=== PATIENT | female | born 1960 | race Caucasian/White ===

== ENCOUNTER → 2018-05-30 | Outpatient (CLI) | payer BC ==
[2018-05-30 12:46] LABS: Basophils % (A) 1 %; Eosinophils # (A) 0.2 k/uL (0-0.7); Eosinophils % (A) 3 %; HCT 41.4 % (34.0-46.0); HGB 13.9 gm/dL (11.4-16.0); Lymphocytes # (A) 2.1 k/uL (1.0-4.8); Lymphocytes % (A) 33 %; MCH 29.1 pg (25.0-35.0); MCHC 33.6 g/dL (31.0-37.0); MCV 86.6 fL (80.0-100.0); Mean Platelet Volume 6.4; Monocytes # (A) 0.3 k/uL (0-1.0); Monocytes % (A) 5 %; Neutrophils # (A) 3.6 k/uL (1.3-7.7); Neutrophils % (A) 57 %; Platelet Count 208 k/uL (150-450); RBC 4.78 m/uL (3.80-5.40); RDW 13.1 % (11.5-15.5); WBC 6.2 k/uL (3.8-10.6)
[2018-05-30 12:53] LABS: Anion Gap 10 mmol/L; Blood Urea Nitrogen 23 mg/dL (7-17); Calcium 9.2 mg/dL (8.4-10.2); Carbon Dioxide 27 mmol/L (22-30); Chloride 103 mmol/L (98-107); Glucose 128 mg/dL (74-99); Potassium 4.4 mmol/L (3.5-5.1); Sodium 140 mmol/L (137-145)
== END | disposition home or self-care (01) ==
LOC: LABPAT 11:41
PROVIDERS: ATTEND Obstetrics & Gynecology
DX: Z01.812 Encounter for preprocedural laboratory examination (principal)
CPT/HCPCS: 36415; 80048; 85025; 93005

== ENCOUNTER 2018-06-05 05:42 | Inpatient (IN) | payer BC ==
[2018-05-29 11:12] VITALS: BMI 28.1
[~2018-06-05 05:42] MED LIST: DEXAMETHASONE SOD PHOSPHATE 10 MG/ML 1 ML VIAL IV ONE; MIDAZOLAM 2 MG/2 ML VIAL IV PRN; ONDANSETRON 4 MG/2 ML VIAL IVP ONE; SCOPOLAMINE 1.5MG/72HR PATCH TRANSDERM ONE; ceFAZolin IN SWFI 2 GM/20 ML SYRINGE IVP ONE; fentaNYL (PF) 50 MCG/ML 2 ML AMP IV PRN
[2018-06-05] MEDS: LACTATED RINGERS 1,000 ML IV SCH ×2 (06:36→18:16)
[2018-06-05 06:49] LABS: Glucose,Whole Blood 106 mg/dL (75-99)
[2018-06-05] MEDS ORDERED: LIDOCAINE 1% 20 ML VIAL (10MG/ML) FOR IV START INTRADERMA ONE (06:56)
--- NOTE | 2018-06-05 07:02 | P.HPOB ---
History of Present Illness H&P Date: 06/05/18 Chief Complaint: Cystocele 57 year old presents for anterior colporrhaphy. Review of Systems All systems: negative Constitutional: Denies chills, Denies fever Eyes: denies blurred vision, denies pain Ears, nose, mouth and throat: Denies headache, Denies sore throat Cardiovascular: Denies chest pain, Denies shortness of breath Respiratory: Denies cough Gastrointestinal: Denies abdominal pain, Denies diarrhea, Denies nausea, Denies vomiting Genitourinary: Denies dysuria, Denies hematuria Musculoskeletal: Denies myalgias Integumentary: Denies pruritus, Denies rash Neurological: Denies numbness, Denies weakness Psychiatric: Denies anxiety, Denies depression Endocrine: Denies fatigue, Denies weight change Past Medical History Past Medical History: Diabetes Mellitus, GERD/Reflux History of Any Multi-Drug Resistant Organisms: None Reported Past Surgical History: Cholecystectomy, Hysterectomy, Orthopedic Surgery Additional Past Surgical History / Comment(s): Rotator cuff repair; Past Anesthesia/Blood Transfusion Reactions: No Reported Reaction Smoking Status: Never smoker Past Alcohol Use History: None Reported Past Drug Use History: None Reported - Past Family History Mother Family Medical History: Cancer Additional Family Medical History / Comment(s): Breast CA Medications and Allergies Home Medications Medication Instructions Recorded Confirmed Type Ascorbic Acid [Vitamin C] 500 mg PO DAILY 05/29/18 05/29/18 History Esomeprazole Magnesium [NexIUM] 20 mg PO AC-BRKFST 05/29/18 06/05/18 History FLUoxetine HCL [PROzac] 20 mg PO HS 05/29/18 06/05/18 History metFORMIN HCL [Glucophage] 500 mg PO BID 05/29/18 06/05/18 History Allergies Allergy/AdvReac Type Severity Reaction Status Date / Time cephalexin [From Keflex] AdvReac Rash/Hives Verified 05/29/18 11:03 clindamycin [From Cleocin] AdvReac Nausea & Verified 05/29/18 11:03 Vomiting; Headaches Sulfa (Sulfonamide AdvReac Rash/Hives Verified 05/29/18 11:03 Antibiotics) sulfamethoxazole AdvReac Rash/Hives Verified 05/29/18 11:03 [From Bactrim] trimethoprim [From Bactrim] AdvReac Rash/Hives Verified 05/29/18 11:03 Exam Osteopathic Statement: *. No significant issues noted on an osteopathic structural exam other than those noted in the History and Physical/Consult. Vital Signs Temp Pulse Resp BP Pulse Ox 06/05/18 06:31 98.5 F 61 16 165/80 98 Heart: RRR Lungs: CTAB Abdomen: soft, nontender Extremeties: neg masoud's Results Abnormal Lab Results - Last 24 Hours (Table) 06/05/18 Range/Units 06:47 POC Glucose (mg/dL) 106 H (75-99) mg/dL Assessment and Plan (1) Cystocele Current Visit: Yes Status: Acute Code(s): [id number] - SNOMED Code(s): 786689559 Plan: 1. anterior colporrhaphy
[2018-06-05] MEDS ORDERED: fentaNYL (PF) 50 MCG/ML 2 ML AMP IVP ONE (07:11)
[2018-06-05] MEDS ORDERED: VASOPRESSIN 20 UNIT/ML 1 ML VIAL SQ ONE ×2 (07:26→07:47)
[2018-06-05] MEDS ORDERED: PROPOFOL 10 MG/ML 20 ML VIAL IV ONE (07:30)
[2018-06-05] MEDS ORDERED: MORPHINE SULFATE (PF) 0.3 MG/0.3 ML SYR ONE (07:30)
[2018-06-05] MEDS ORDERED: ePHEDrine SULFATE/0.9% NACL/PF 50 MG/5 ML SYRINGE IV ONE (07:30)
[2018-06-05] MEDS ORDERED: MIDAZOLAM 2 MG/2 ML VIAL ONE (07:30)
[2018-06-05] MEDS ORDERED: LIDOCAINE 1% INJ 10MG/ML (20 ML MDV) ONE (07:30)
[2018-06-05] MEDS ORDERED: fentaNYL (PF) 50 MCG/ML 2 ML AMP ONE (07:30)
[2018-06-05] MEDS ORDERED: SUCCINYLCHOLINE CHLORIDE 100 MG/5 ML SYR IV ONE (07:30)
[2018-06-05] MEDS ORDERED: CLINDAMYCIN 150 MG/ML 4 ML VIAL IVPB ONE (07:44)
[2018-06-05] MEDS ORDERED: BACITRACIN 500 UNIT/GM OINT 28.4 GM TUBE TOPICAL ONE (08:00)
--- NOTE | 2018-06-05 08:13 | P.OP ---
Date of Procedure: 06/05/18 Preoperative Diagnosis: 1. cystocele Postoperative Diagnosis: 1.same Procedure(s) Performed: anterior colporrhaphy Anesthesia: LD Surgeon: Paty Butler Housetrailer Servicer #1: Rodriguez Cedeño Estimated Blood Loss (ml): 5 IV fluids (ml): 600 Urine output (ml): 150 Pathology: other (vaginal mucosa) Condition: stable Disposition: PACU Operative Findings: large cystocele with some apical prolapse Description of Procedure: Patient was taken to the operating room where general anesthesia was obtained without difficulty. She is prepped and draped in normal sterile fashion in the dorsal lithotomy position, legs placed in candycane stirrups. Bladder was drained of all urine. The anterior vaginal mucosa was grasped with 2 Allis clamps. The anterior vaginal mucosa was infiltrated with diluted vasopressin. A horizontal incision was made with a scalpel and then a linear incision was made with the Metzenbaums and the vaginal mucosa was underscored with the Metzenbaums. The vaginal mucosa was peeled off the underlying fascia and a blunt manner. The underlying fascia was then pulled together with Hanh plication stitches of 0 Vicryl. The vaginal mucosa was trimmed and then repaired with 0 Vicryl in a running locked fashion. Vaginal packing and Ramirez catheter were placed. Patient tolerated procedure well sponge initial counts correct 2 and she was taken to recovery room in stable condition.
[2018-06-05] MEDS ORDERED: ONDANSETRON 4 MG/2 ML VIAL IVP PRN ×2 (08:15→09:25)
[2018-06-05] MEDS ORDERED: NALOXONE 0.4 MG/ML 1 ML VIAL IV PRN (08:15)
[2018-06-05] MEDS ORDERED: MORPHINE SULFATE 2 MG/ML SYRINGE IVP PRN (08:15)
[2018-06-05] MEDS: KETOROLAC 30 MG/ML 1 ML VIAL IVP PRN ×3 (08:38→20:06)
[2018-06-05] MEDS ORDERED: SIMETHICONE 80 MG CHEWABLE PO PRN (09:25)
[2018-06-05] MEDS ORDERED: HYDROcodone/APAP 5-325MG 1 EACH TAB PO PRN (09:25)
[2018-06-05] MEDS: SENNOSIDES-DOCUSATE SODIUM 1 EACH TAB PO SCH ×2 (12:26→20:15)
[2018-06-05] MEDS: metFORMIN 500 MG TAB PO SCH ×2 (12:27→20:08)
[2018-06-05] MEDS: diphenhydrAMINE 50 MG/ML 1 ML VIAL IVP PRN ×2 (14:28→20:07)
[2018-06-05] MEDS: FLUoxetine HCL 20 MG CAP PO SCH (20:08)
[2018-06-05] MEDS ORDERED: NALBUPHINE 10 MG/ML VIAL (10ML MDV) IM ONE (21:45)
[2018-06-06] MEDS: KETOROLAC 30 MG/ML 1 ML VIAL IVP PRN ×3 (01:58→21:18)
[2018-06-06] MEDS: PANTOPRAZOLE 40 MG TABLET PO SCH (06:17)
[2018-06-06 07:30] LABS: Basophils % (A) 0 %; Eosinophils # (A) 0.1 k/uL (0-0.7); Eosinophils % (A) 1 %; HCT 37.4 % (34.0-46.0); HGB 12.5 gm/dL (11.4-16.0); Lymphocytes # (A) 2.1 k/uL (1.0-4.8); Lymphocytes % (A) 30 %; MCH 29.6 pg (25.0-35.0); MCHC 33.4 g/dL (31.0-37.0); MCV 88.5 fL (80.0-100.0); Mean Platelet Volume 6.4; Monocytes # (A) 0.4 k/uL (0-1.0); Monocytes % (A) 6 %; Neutrophils # (A) 4.4 k/uL (1.3-7.7); Neutrophils % (A) 62 %; Platelet Count 183 k/uL (150-450); RBC 4.22 m/uL (3.80-5.40); RDW 13.4 % (11.5-15.5); WBC 7.2 k/uL (3.8-10.6)
[2018-06-06] MEDS: metFORMIN 500 MG TAB PO SCH ×2 (08:29→21:04)
[2018-06-06] MEDS: SENNOSIDES-DOCUSATE SODIUM 1 EACH TAB PO SCH ×2 (08:29→21:03)
--- NOTE | 2018-06-06 08:44 | P.PN ---
Progress Note - Text Progress Note Date: 06/06/18 57-year-old female status post anterior colporrhaphy postop day 1. Patient doing well states that pain is a 4/10 in severity. Has no complaints, no pruritus, no motor weakness, no sensory deficits. Patient ambulating.
[2018-06-06] MEDS ORDERED: diphenhydrAMINE 50 MG/ML 1 ML VIAL IVP PRN (08:54)
--- NOTE | 2018-06-06 09:06 | P.DS ---
Providers Date of admission: 06/05/18 08:23 Expected date of discharge: 06/06/18 Attending physician: Paty Butler Primary care physician: Abraham Adams - Discharge Diagnosis(es) (1) Cystocele Current Visit: Yes Status: Resolved (2) History of vaginal surgery Current Visit: Yes Status: Acute Hospital Course: pt presented for anterior colporrhaphy. She underwent this procedure without complication. Her postoperative course was uncomplicated. She will be discharged home POD #1 in stable condition to follow up with me in 4 weeks. Plan - Discharge Summary Discharge Rx Participant: No New Discharge Prescriptions: New Ibuprofen [Motrin] 600 mg PO Q6HR PRN #30 tab PRN Reason: Mild Pain Or Fever >= 100.5 No Action Ascorbic Acid [Vitamin C] 500 mg PO DAILY metFORMIN HCL [Glucophage] 500 mg PO BID FLUoxetine HCL [PROzac] 20 mg PO HS Esomeprazole Magnesium [NexIUM] 20 mg PO AC-BRKT Discharge Medication List Ascorbic Acid [Vitamin C] 500 mg PO DAILY 05/29/18 [History] Esomeprazole Magnesium [NexIUM] 20 mg PO AC-BRKFST 05/29/18 [History] FLUoxetine HCL [PROzac] 20 mg PO HS 05/29/18 [History] metFORMIN HCL [Glucophage] 500 mg PO BID 05/29/18 [History] Ibuprofen [Motrin] 600 mg PO Q6HR PRN #30 tab 06/06/18 [Rx] Follow up Appointment(s)/Referral(s): Paty Butler DO [Doctor of Osteopathic Medicine] - 4 Weeks Patient Instructions/Handouts: Ketorolac (By injection), Anterior Vaginal Repair (DC) Discharge Disposition: HOME SELF-CARE
[2018-06-06] MEDS: FLUoxetine HCL 20 MG CAP PO SCH (21:03)
[2018-06-07] MEDS: PANTOPRAZOLE 40 MG TABLET PO SCH (07:27)
[2018-06-07] MEDS: SENNOSIDES-DOCUSATE SODIUM 1 EACH TAB PO SCH (07:27)
[2018-06-07] MEDS: metFORMIN 500 MG TAB PO SCH (07:29)
[2018-06-07 07:43] VITALS: BP 149/83; PULSE 78; RESP 16; TEMP 97.7
[2018-06-07] MEDS ORDERED: IBUPROFEN 600 MG TAB PO PRN (08:20)
== END 2018-06-07 08:35 | disposition home or self-care (01) | DRG 748 ==
LOC: OR 05:42 → 6PED 08:23 → OR 10:25
PROVIDERS: ADMIT Obstetrics & Gynecology; ATTEND Obstetrics & Gynecology
PROC: 0JQC0ZZ Repair Pelvic Region Subcutaneous Tissue and Fascia, Open Approach (ICD-10-PCS; principal; 2018-06-05 07:30)
DX: N99.3 Prolapse of vaginal vault after hysterectomy (principal); E11.9 Type 2 diabetes mellitus without complications; K21.9 Gastro-esophageal reflux disease without esophagitis; F41.9 Anxiety disorder, unspecified; Z90.49 Acquired absence of other specified parts of digestive tract; Z88.2 Allergy status to sulfonamides; Z88.1 Allergy status to other antibiotic agents; Z79.84 Long term (current) use of oral hypoglycemic drugs; Z79.899 Other long term (current) drug therapy
CPT/HCPCS: 85025; 86850; 86900; 86901; 88302

== ENCOUNTER → 2018-12-22 | Outpatient (CLI) | payer BC ==
--- NOTE | 2018-12-22 14:38 | XR ---
EXAMINATION TYPE: XR chest 2V DATE OF EXAM: 12/22/2018 COMPARISON: NONE HISTORY: Shortness of breath TECHNIQUE: Frontal and lateral views of the chest are obtained. FINDINGS: Scattered senescent parenchymal changes noted. Hyperinflation compatible with COPD. No evidence for infiltrate. No evidence for atelectasis. Heart size is stable. Mediastinal structures are stable and grossly unremarkable. No evidence for hilar prominence. Degenerative changes dorsal spine. IMPRESSION: 1. No evidence for acute pulmonary disease.
== END | disposition home or self-care (01) ==
LOC: RADXRYALE 14:03
PROVIDERS: ATTEND Physician Assistant Medical
DX: Z01.811 Encounter for preprocedural respiratory examination (principal)
CPT/HCPCS: 71046

== ENCOUNTER → 2021-03-20 | Outpatient (CLI) | payer BC ==
--- NOTE | 2021-03-31 11:32 | MM ---
Reason for exam: screening (asymptomatic). Last mammogram was performed 10 years ago. History: Patient is postmenopausal. Family history of breast cancer in mother. Physical Findings: A clinical breast exam by your physician is recommended on an annual basis and results should be correlated with mammographic findings. MG 3D Screening Mammo W/Cad Bilateral CC and MLO view(s) were taken. Prior study comparison: March 11, 2011, mammogram, performed at [facility]. There are scattered fibroglandular densities. There is no discrete abnormality. No significant changes when compared with prior studies. ASSESSMENT: Negative, BI-RAD 1 RECOMMENDATION: Routine screening mammogram of both breasts in 1 year.
== END | disposition home or self-care (01) ==
LOC: RADMAMWWP 10:34
PROVIDERS: ATTEND Family Medicine
DX: Z12.31 Encounter for screening mammogram for malignant neoplasm of breast (principal); Z78.0 Asymptomatic menopausal state; Z80.3 Family history of malignant neoplasm of breast
CPT/HCPCS: 77063; 77067

== ENCOUNTER → 2021-08-24 | Outpatient (CLI) | payer BC ==
--- NOTE | 2021-08-24 21:03 | XR ---
EXAMINATION TYPE: XR wrist complete 3 views LT, XR forearm 2 views LT DATE OF EXAM: 08/24/2021 COMPARISON: NONE HISTORY: 60-year-old female [id number], [id number], [id number] LT HAND/WRIST PAIN, FALL FINDINGS: Left wrist: There is moderate degenerative joint space narrowing with marginal spurring and subchondral sclerosis at the first CMC joint. The radiocarpal and distal radioulnar joint as well as the midcarpal compart ment appear intact. No acute fracture, subluxation, or dislocation. Left forearm: The elbow articulation is grossly intact. No elbow joint effusion. Radius and ulna show no evidence f or acute fracture. No periostitis or osteolysis. IMPRESSION: Left wrist and forearm without acute osseous abnormality seen. 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
== END | disposition home or self-care (01) ==
LOC: RADXRYALE 16:13
PROVIDERS: ATTEND Physician Assistant Medical
DX: M19.042 Primary osteoarthritis, left hand (principal); M25.542 Pain in joints of left hand; M25.532 Pain in left wrist; W01.10XA Fall on same level from slipping, tripping and stumbling with subsequent striking against unspecified object, initial encounter

== ENCOUNTER → 2021-09-15 | Outpatient (CLI) | payer BC ==
--- NOTE | 2021-09-15 14:54 | XR ---
EXAMINATION TYPE: XR hand complete LT DATE OF EXAM: 09/15/2021 COMPARISON: NONE HISTORY: 61-year-old female [id number] LT HAND PAIN TECHNIQUE: 3 views FINDINGS: There is moderate degenerative change first CMC joint with joint space narrowing, subchondral scleros is, and marginal spurring. No acute fracture, subluxation, or dislocation seen. 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 No acute osseous abnormality seen.
== END | disposition home or self-care (01) ==
LOC: RADXRYALE 11:49
PROVIDERS: ATTEND Physician Assistant Medical
DX: M19.042 Primary osteoarthritis, left hand (principal)

== ENCOUNTER 2021-11-24 06:31 | Emergency (ER) | payer BC ==
[2021-11-24 06:38] VITALS: TEMP 98.5
--- NOTE | 2021-11-24 07:10 | ED ---
General Adult HPI - General Chief complaint: Upper Respiratory Infection Stated complaint: Abdominal pain, fever Time Seen by Provider: 11/24/21 06:38 Source: patient, RN notes reviewed Mode of arrival: ambulatory Limitations: no limitations - History of Present Illness Initial comments: This a 61-year-old female presents emergency Department with chief complaint of fever cough congestion bodyaches headache. Patient states symptoms started over the last few days. Patient states that recently she was diagnosed with a liver cyst and which she was referred to [facility] found to have lung spot and this was biopsied vomiting that she had a fungal infection. Last week she ended up having her cyst removed on her liver with no complications. Patient states that she was discharged in which she's been placed on antifungals with states that she felt she started having a reaction because she is having cough congestion bodyaches chills. She states that she talked infectious disease who told her to continue taking the medications. She states she stopped. Patient also states that she fell a few days ago at the steps onto her ribs complaint right-sided rib pain and bruising. No abdominal pain she states her surgical sites look well there is no drainage or redness. Patient had some nausea without vomiting. - Related Data Home Medications Medication Instructions Recorded Confirmed metFORMIN HCL [Glucophage] 1,000 mg PO BID 05/29/18 11/24/21 ALPRAZolam [Xanax] 0.25 mg PO HS PRN 11/24/21 11/24/21 HYDROcodone/APAP 5-325MG [[place] 1 - 2 tab PO Q6H PRN 11/24/21 11/24/21 5-325] Ibuprofen [Motrin] 800 mg PO BID PRN 11/24/21 11/24/21 Insulin Detemir (Levemir) [Levemir] 16 unit SQ HS 11/24/21 11/24/21 Sertraline [Zoloft] 50 mg PO DAILY 11/24/21 11/24/21 ondansetron HCL [Zofran] 8 mg PO Q8H PRN 11/24/21 11/24/21 Previous Rx's Medication Instructions Recorded Benzonatate [Tessalon Perles] 200 mg PO TID #20 capsule 11/24/21 Allergies Allergy/AdvReac Type Severity Reaction Status Date / Time cephalexin [From Keflex] AdvReac Rash/Hives Verified 11/24/21 07:24 clindamycin [From Cleocin] AdvReac Nausea & Verified 11/24/21 07:24 Vomiting; Headaches Sulfa (Sulfonamide AdvReac Rash/Hives Verified 11/24/21 07:24 Antibiotics) sulfamethoxazole AdvReac Rash/Hives Verified 11/24/21 07:24 [From Bactrim] trimethoprim [From Bactrim] AdvReac Rash/Hives Verified 11/24/21 07:24 Review of Systems ROS Statement: Those systems with pertinent positive or pertinent negative responses have been documented in the HPI. ROS Other: All systems not noted in ROS Statement are negative. Past Medical History Past Medical History: Diabetes Mellitus, GERD/Reflux Additional Past Medical History / Comment(s): cyst on liver. History of Any Multi-Drug Resistant Organisms: ESBL Date of last positivie culture/infection: 02/19/20 MDRO Source:: ESBL URINE Past Surgical History: Cholecystectomy, Hysterectomy, Orthopedic Surgery Additional Past Surgical History / Comment(s): Rotator cuff repair; Past Anesthesia/Blood Transfusion Reactions: No Reported Reaction Past Psychological History: Anxiety Smoking Status: Never smoker Past Alcohol Use History: None Reported Past Drug Use History: None Reported - Past Family History Mother Family Medical History: Cancer Additional Family Medical History / Comment(s): Breast CA General Exam Limitations: no limitations General appearance: alert, in no apparent distress Head exam: Present: atraumatic, normocephalic, normal inspection Eye exam: Present: normal appearance, PERRL, EOMI. Absent: scleral icterus, conjunctival injection, periorbital swelling ENT exam: Present: normal exam, normal oropharynx, mucous membranes moist Neck exam: Present: normal inspection, full ROM. Absent: tenderness, meningismus, lymphadenopathy Respiratory exam: Present: normal lung sounds bilaterally, chest wall tenderness (Moderate right lateral lower rib tenderness). Absent: respiratory distress, wheezes, rales, rhonchi, stridor Cardiovascular Exam: Present: normal rhythm, tachycardia, normal heart sounds. Absent: systolic murmur, diastolic murmur, rubs, gallop, clicks GI/Abdominal exam: Present: soft, normal bowel sounds, other (Surgical sites are well appearing, no abdominal tenderness). Absent: distended, tenderness, guarding, rebound, rigid Back exam: Absent: CVA tenderness (R), CVA tenderness (L) Neurological exam: Present: alert, oriented X3, CN II-XII intact Skin exam: Present: warm, dry, intact, normal color. Absent: rash Course Vital Signs 11/24/21 11/24/21 11/24/21 06:34 08:30 09:35 Temperature 98.5 F Pulse Rate 114 H 91 100 Respiratory 20 16 16 Rate Blood Pressure 116/77 122/70 122/67 O2 Sat by Pulse 96 100 100 Oximetry Medical Decision Making - Medical Decision Making 61-year-old was on for possible fever infection. Patient has had a cough chills body aches initial workup included x-ray influenza and covid 19 which was negative. Patient labs and CT with no specific findings for his nonischemic pneumonia. Patient has had recent surgery in which shows post surgical changes but no definite abscess or infection. Patient has no abdominal pain patient's symptoms most likely related from viral versus her underlying fungal infection. She is to follow-up with her infectious disease physician restart her medication return for worsening changes symptoms. - Lab Data Result diagrams: 11/24/21 07:56 11/24/21 07:56 Lab Results 11/24/21 11/24/21 11/24/21 Range/Units 06:57 07:08 07:56 WBC 12.8 H (3.8-10.6) k/uL RBC 5.05 (3.80-5.40) m/uL Hgb 14.3 (11.4-16.0) gm/dL Hct 43.8 (34.0-46.0) % MCV 86.8 (80.0-100.0) fL MCH 28.4 (25.0-35.0) pg MCHC 32.7 (31.0-37.0) g/dL RDW 12.9 (11.5-15.5) % Plt Count 239 (150-450) k/uL MPV 7.0 Neutrophils % 81 % Lymphocytes % 14 % Monocytes % 3 % Eosinophils % 1 % Basophils % 0 % Neutrophils # 10.3 H (1.3-7.7) k/uL Lymphocytes # 1.8 (1.0-4.8) k/uL Monocytes # 0.4 (0-1.0) k/uL Eosinophils # 0.1 (0-0.7) k/uL Basophils # 0.0 (0-0.2) k/uL Sodium (137-145) mmol/L Potassium (3.5-5.1) mmol/L Chloride (98-107) mmol/L Carbon Dioxide (22-30) mmol/L Anion Gap mmol/L BUN (7-17) mg/dL Creatinine (0.52-1.04) mg/dL Est GFR (CKD-EPI)AfAm (>60 ml/min/1.73 sqM) Est GFR (CKD-EPI)NonAf (>60 ml/min/1.73 sqM) Glucose (74-99) mg/dL Plasma Lactic Acid Justo (0.7-2.0) mmol/L Calcium (8.4-10.2) mg/dL Total Bilirubin (0.2-1.3) mg/dL AST (14-36) U/L ALT (4-34) U/L Alkaline Phosphatase (38-126) U/L Total Protein (6.3-8.2) g/dL Albumin (3.5-5.0) g/dL Coronavirus (PCR) Not Detected (Not Detectd) Influenza Type A RNA Not Detected (Not Detectd) Influenza Type B (PCR) Not Detected (Not Detectd) 11/24/21 11/24/21 Range/Units 07:56 07:56 WBC (3.8-10.6) k/uL RBC (3.80-5.40) m/uL Hgb (11.4-16.0) gm/dL Hct (34.0-46.0) % MCV (80.0-100.0) fL MCH (25.0-35.0) pg MCHC (31.0-37.0) g/dL RDW (11.5-15.5) % Plt Count (150-450) k/uL MPV Neutrophils % % Lymphocytes % % Monocytes % % Eosinophils % % Basophils % % Neutrophils # (1.3-7.7) k/uL Lymphocytes # (1.0-4.8) k/uL Monocytes # (0-1.0) k/uL Eosinophils # (0-0.7) k/uL Basophils # (0-0.2) k/uL Sodium 133 L (137-145) mmol/L Potassium 4.6 (3.5-5.1) mmol/L Chloride 101 (98-107) mmol/L Carbon Dioxide 24 (22-30) mmol/L Anion Gap 8 mmol/L BUN 16 (7-17) mg/dL Creatinine 0.36 L (0.52-1.04) mg/dL Est GFR (CKD-EPI)AfAm >90 (>60 ml/min/1.73 sqM) Est GFR (CKD-EPI)NonAf >90 (>60 ml/min/1.73 sqM) Glucose 302 H (74-99) mg/dL Plasma Lactic Acid Justo 1.1 (0.7-2.0) mmol/L Calcium 9.3 (8.4-10.2) mg/dL Total Bilirubin 0.9 (0.2-1.3) mg/dL AST 25 (14-36) U/L ALT 25 (4-34) U/L Alkaline Phosphatase 46 (38-126) U/L Total Protein 7.0 (6.3-8.2) g/dL Albumin 3.8 (3.5-5.0) g/dL Coronavirus (PCR) (Not Detectd) Influenza Type A RNA (Not Detectd) Influenza Type B (PCR) (Not Detectd) Disposition Clinical Impression: Viral infection, URI (upper respiratory infection), Contusion of rib on right side Disposition: HOME SELF-CARE Condition: Stable Instructions (If sedation given, give patient instructions): Upper Respiratory Infection (ED) Additional Instructions: Please return to the Emergency Department if symptoms worsen or any other concerns. Prescriptions: Benzonatate [Tessalon Perles] 200 mg PO TID #20 capsule Is patient prescribed a controlled substance at d/c from ED?: No Referrals: Abraham Adams DO [Primary Care Provider] - 1-2 days Time of Disposition: 09:45
--- NOTE | 2021-11-24 07:29 | XR ---
EXAMINATION TYPE: PA chest and right rib series DATE OF EXAM: 11/24/2021 COMPARISON: 12/22/2018 HISTORY: 61-year-old female pain along the right ribs after fall TECHNIQUE: 5 views FINDINGS: The cardiomediastinal silhouette, aorta, and pulmonary vasculature are within normal limits. High-den sity, 1.5 cm nodule redemonstrated at the left upper lobe slightly better seen now. The strandy atele ctasis or scarring at the left lower lung. No displaced right rib fracture seen. Cholecystectomy clips. IMPRESSION: 1. No displaced right rib fracture seen. 2. Some stable scarring or atelectasis at the left lower lung. No acute cardiopulmonary process. 3. A 1.5 cm left upper lobe nodule seems to have been present back in 2019 as well but is now better seen. A calcified granuloma is suspected. This can be confirmed on a nonemergent follow-up CT chest.
[2021-11-24] MEDS ORDERED: ONDANSETRON 4 MG/2 ML VIAL IVP STA (07:43)
[2021-11-24] MEDS ORDERED: SODIUM CHLORIDE 0.9% 1,000 ML IV ONE (07:43)
[2021-11-24 08:31] VITALS: RESP 16
[2021-11-24 08:33] LABS: Basophils % (A) 0 %; Eosinophils # (A) 0.1 k/uL (0-0.7); Eosinophils % (A) 1 %; HCT 43.8 % (34.0-46.0); HGB 14.3 gm/dL (11.4-16.0); Lymphocytes # (A) 1.8 k/uL (1.0-4.8); Lymphocytes % (A) 14 %; MCH 28.4 pg (25.0-35.0); MCHC 32.7 g/dL (31.0-37.0); MCV 86.8 fL (80.0-100.0); Monocytes # (A) 0.4 k/uL (0-1.0); Monocytes % (A) 3 %; Neutrophils # (A) 10.3 k/uL (1.3-7.7); Neutrophils % (A) 81 %; Platelet Count 239 k/uL (150-450); RBC 5.05 m/uL (3.80-5.40); RDW 12.9 % (11.5-15.5); WBC 12.8 k/uL (3.8-10.6)
[2021-11-24 08:42] LABS: ALT 25 U/L (4-34); African American GFR (CKD) >90 (>60 ml/min/1.73 sqM); Albumin 3.8 g/dL (3.5-5.0); Anion Gap 8 mmol/L; Blood Urea Nitrogen 16 mg/dL (7-17); Calcium 9.3 mg/dL (8.4-10.2); Carbon Dioxide 24 mmol/L (22-30); Chloride 101 mmol/L (98-107); Glucose 302 mg/dL (74-99); Non-African American GFR(CKD) >90 (>60 ml/min/1.73 sqM); Sodium 133 mmol/L (137-145); Total Bilirubin 0.9 mg/dL (0.2-1.3)
[2021-11-24 08:44] LABS: AST 25 U/L (14-36); Alkaline Phosphatase 46 U/L (38-126); Potassium 4.6 mmol/L (3.5-5.1)
[2021-11-24] MEDS ORDERED: guaiFENesin-Coden 100-10MG/5ML 10 ML CUP PO STA (09:18)
--- NOTE | 2021-11-24 09:21 | CT ---
1EXAMINATION TYPE: CT ChestAbdPelvis w con DATE OF EXAM: 11/24/2021 COMPARISON: None HISTORY: Fever, cough, recent surgery for liver cyst CT DLP: 910.4 mGycm CONTRAST: CT scan of the chest, abdomen and pelvis is performed without Oral Contrast and with IV Contrast, pat ient injected with 100 mL of Isovue 300. CT Chest: LUNGS: Solid pulmonary nodule left upper lobe measures 1.7 cm. Comparison prior studies would be of v alue. No additional pulmonary nodules seen at this time. Right medial basilar atelectasis or developi ng infiltrate. No pleural effusion or CT evidence of interstitial lung disease. MEDIASTINUM: Thoracic aorta is of normal caliber. The heart is not enlarged. No evidence for media stinal mass or adenopathy. HILAR STRUCTURES: No evidence for mass. No hilar adenopathy is appreciated. OTHER: No significant abnormality. CONTRAST CT ABDOMEN AND PELVIS FINDINGS: LIVER/GB: Irregular hypoattenuating collection within the left hepatic lobe medial segment near the h epatic periphery measuring 8.5 x 5.8 x 7.5 cm with several internal foci of air. While this could ref lect postoperative change infected cyst or collection is not excluded. Correlate with recent surgical intervention. There are additional hypoattenuating well-defined cystic lesions seen the largest with in the anterior segment right hepatic lobe measuring 8.7 cm compatible with simple hepatic cysts. The re is irregularity of the liver at the hepatic tip right hepatic lobe could reflect postsurgical virgen ge with partial resection. Again correlation with surgical history is advised. Cholecystectomy clips are in place. PANCREAS: No inflammation. No distinct mass. SPLEEN: No splenic enlargement. No lesion seen. ADRENALS: No nodule. No thickening. KIDNEYS/BLADDER: No hydronephrosis. No nephrolithiasis. No disctinct renal mass. BOWEL: Normal appendix. Normal bowel caliber. No inflammation. GENITAL ORGANS: No gross abnormality. LYMPH NODES: No greater than 1cm abdominal or pelvic lymph nodes are appreciated. AORTA: No significant abnormality. OSSEOUS STRUCTURES: No significant abnormality is seen. OTHER: No significant additional abnormality is seen. IMPRESSION: 1. There is reported the prior surgical intervention: No prior studies are available for review at [facility]. As noted within the left hepatic lobe medial segment there is an irregular hepatic co llection within joint. There should BE postoperative in nature however infected collection is not exc luded. 2. There appears to be a small area of resected liver right hepatic lobe near the hepatic tip. Again correlation with recent surgical intervention is recommended. 3. Multiple hepatic cysts. 4. Solid pulmonary nodule left upper lobe.
[2021-11-24 10:33] VITALS: BP 116/66; PULSE 99
== END 2021-11-24 10:33 | disposition home or self-care (01) ==
LOC: EC 06:31
DX: S20.211A Contusion of right front wall of thorax, initial encounter (principal); J06.9 Acute upper respiratory infection, unspecified; B34.9 Viral infection, unspecified; E11.9 Type 2 diabetes mellitus without complications; Z20.822 Contact with and (suspected) exposure to COVID-19; Z79.84 Long term (current) use of oral hypoglycemic drugs; Z79.4 Long term (current) use of insulin; Z88.1 Allergy status to other antibiotic agents; Z88.2 Allergy status to sulfonamides; W19.XXXA Unspecified fall, initial encounter
CPT/HCPCS: 99284; 96374; 96361; 36415; 80053; 83605; 85025; 87040; 87502; 87635; 71101; 71260; 74177; J2405; Q9967

== ENCOUNTER → 2022-05-06 | Outpatient (CLI) | payer BC ==
--- NOTE | 2022-05-07 08:23 | XR ---
EXAMINATION TYPE: XR knee complete bilateral DATE OF EXAM: 05/06/2022 COMPARISON: None HISTORY: Bilateral knee pain TECHNIQUE: Bilateral knees are examined in 3 views each. FINDINGS: No joint effusions are evident. Patellofemoral joint spaces are preserved. There is vacuum phenomenon within the medial compartment right knee. Lateral compartment right knee appears preserved . There is moderate narrowing of the left medial compartment joint space. Lateral compartment joint s pace left knee appears normal. IMPRESSION: 1. Mild to moderate bilateral medial compartment knee degenerative changes. Vacuum phenomenon may be present on the right.
== END | disposition home or self-care (01) ==
LOC: RADXRYALE 16:09
PROVIDERS: ATTEND Physician Assistant Medical
DX: M25.561 Pain in right knee (principal); M79.605 Pain in left leg

== ENCOUNTER → 2024-02-29 | Outpatient (CLI) | payer MEDICARE ==
--- NOTE | 2024-03-01 14:24 | MM ---
Reason for Exam: Screening (asymptomatic). Last mammogram was performed 3 year(s) and 0 month(s) ago. Patient History: Menarche at age 12. First Full-Term at age 17. Hysterectomy at age 40. Postmenopausal. Mother had breast cancer. Risk Values: Eileen 5 year model risk: 2.8%. NCI Lifetime model risk: 10.4%. Prior Study Comparison: 03/11/2011 Screening Mammogram, [facility]. 03/20/2021 Bilateral Screening Mammogram, [facility]. Tissue Density: The breasts are almost entirely fatty. Findings: Analyzed By CAD. Right breast: There is no suspicious group of microcalcifications or new suspicious mass. Left breast: There is no suspicious group of microcalcifications or new suspicious mass. Overall Assessment: Negative, BI-RAD 1 Management: Screening Mammogram of both breasts in [address] [facility] will attempt to contact patient to return for supplemental views and ultrasound if indicated. Patient should continue monthly self-breast exams. A clinical breast exam by your physician is recommended on an annual basis. This exam should not preclude additional follow-up of suspicious palpable abnormalities. Note on Eileen scores and lifetime risk: 1. A Eileen score greater than 3% is considered moderate risk. If this is the case, consider specialist referral to assess eligibility for a risk reducing agent. 2. If overall lifetime risk for the development of breast cancer is 20% or higher, the patient may qualify for future screening with alternating mammogram and breast MRI. Electronically signed and approved by: Willie Smith DO
== END | disposition home or self-care (01) ==
LOC: RADMAMWWP 09:53
PROVIDERS: ATTEND Family Medicine
DX: Z12.31 Encounter for screening mammogram for malignant neoplasm of breast (principal); Z80.3 Family history of malignant neoplasm of breast; Z78.0 Asymptomatic menopausal state
CPT/HCPCS: 77063; 77067